=== PATIENT | male | born 1970 | race Two or more races ===

== ENCOUNTER 2022-05-26 20:44 | Emergency (ER) | payer BC, SELFPAY ==
--- NOTE | ~2022-05-26 | US_ITS ---
EXAMINATION: US venous doppler LE RT DATE: 05/26/2022 21:26 INDICATION: right calf pain r/o dvt . TECHNIQUE: Grayscale images without and with compression and Doppler images of the right lower extrem ity veins were obtained. COMPARISON: None FINDINGS: The right common femoral vein, profunda (deep) femoral vein, femoral vein, popliteal vein, peroneal v ein, posterior tibial veins, gastrocnemius vein, and greater saphenous vein are patent. IMPRESSION: 1. Patent right lower extremity veins. No evidence of deep venous thrombosis. Reviewed, dictated and finalized at location [facility]
[2022-05-26 20:53] VITALS: BP 113/89; PULSE 89; RESP 20; TEMP 36.6; O2SAT 96
--- NOTE | 2022-05-26 21:55 | ED.LOWEXIN ---
HPI - Extremity Injury (Lower) General Chief Complaint: Extremity Injury, Lower Stated Complaint: calf pain Time Seen by Provider: 05/26/22 21:51 History of Present Illness HPI Narrative: Patient is a 51-year-old male presenting with right calf pain. 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 States that he started lifting approximately a week ago. Shortly after this he developed intermittent sharp pain in his right calf that is worse with certain movements. The pain continued through today and he started to become concerned for a blood clot. He denies leg swelling or redness. He denies recent injuries. No chest pain or shortness of breath. He denies further complaints or symptoms. Related Data Allergies Allergy/AdvReac Type Severity Reaction Status Date / Time No Known Allergies Allergy Verified 05/26/22 22:12 Review of Systems Review of Systems: All systems reviewed & are unremarkable except as noted in HPI and below Exam Narrative: GENERAL: Well-appearing, well-nourished, and in no acute distress. HEAD: Normocephalic, atraumatic. EYES: PERRLA and EOMI. ENT: Nares clear, no rhinorrhea or epistaxis. Mucous membranes moist. NECK: Supple. CHEST: Clear to auscultation. No respiratory distress. HEART: Regular rate and rhythm. No murmur heard. Normal peripheral pulses. ABDOMEN: Soft, nontender, nondistended, normal active bowel sounds. EXTREMITIES: Normal range of motion. No edema. SKIN: Warm, dry, no rash. NEURO: No focal deficits. Alert and oriented x3. PSYCH: Normal mood and affect. Course Vital Signs Vital signs: Vital Signs Temperature 97.9 F 05/26/22 20:53 Pulse Rate 89 05/26/22 20:53 Respiratory Rate 05/26/22 20:53 Blood Pressure 113/89 05/26/22 20:53 Pulse Oximetry 96 05/26/22 20:53 Oxygen Delivery Room Air 05/26/22 20:53 Temperature 97.9 F 05/26/22 20:53 Pulse Rate 89 05/26/22 20:53 Respiratory Rate 20 05/26/22 20:53 Blood Pressure 113/89 05/26/22 20:53 Pulse Oximetry 96 05/26/22 20:53 Oxygen Delivery Room Air 05/26/22 20:53 MDM - Extremity Injury (Lower) MDM Narrative Medical decision making narrative: Patient is a 51-year-old male presenting with right calf pain and concern for DVT. Vitals are within normal limits. Patient is well-appearing and in no acute distress. Exam is unremarkable. Venous Doppler of his right lower extremity reveals no evidence of DVT. Suspect the patient's calf pain is related to his recent increase in physical activity. Advised Tylenol and ibuprofen for pain control. Appropriate return precautions given. Patient voiced understanding and is agreeable with plan. Discharged in stable condition. Critical Care Time Critical Care Time Critical Care Time: No Discharge Plan Discharge Clinical Impression: Right calf pain Patient Disposition: Home, Self-Care Condition: Stable Instructions: Antibiotic Form, Leg Pain (ED) Additional Instructions: Please use Tylenol and ibuprofen for pain control. Please follow-up with your PCP. If your symptoms worsen, you develop chest pain or shortness of breath, or other concerning symptoms arise, please return to the ER. Follow-up/Referrals: Heraclio,Manoj Chilel MD [Primary Care Provider] -
== END 2022-05-26 23:00 | disposition home or self-care (01) ==
LOC: ANHED 22:58
PROVIDERS: Emergency Provider Emergency Medicine; PCP Family Medicine
DX: M79.661 Pain in right lower leg (principal)
CPT/HCPCS: 93971; 99284

== ENCOUNTER 2023-07-27 10:42 | Outpatient (CLI) | payer BC, SELFPAY ==
--- NOTE | 2023-07-27 10:55 | ECG_ITS ---
Measurements Intervals [place] Rate: 71 P: 57 MT: 216 QRS: -8 QRSD: 82 T: 27 QT: 368 QTc: 402 Interpretive Statements SINUS RHYTHM WITH FIRST DEGREE AV BLOCK DELAYED PRECORDIAL R/S TRANSITION BASELINE ARTIFACT- I, II, III, AVR, AVL, AVF BORDERLINE ECG NO PREVIOUS ECG AVAILABLE FOR COMPARISON Electronically Signed On 07-27-2023 11:32:05 CDT by Anuel Davey D.O.
[2023-07-27 11:28] LABS: Anion Gap 5 mmol/L (8-16); Blood Urea Nitrogen 19 mg/dL (9-20); Calcium 9.4 mg/dL (8.4-10.2); Carbon Dioxide 29 mmol/L (22-30); Chloride 106 mmol/L (98-107); Estimated Glomerular Filt Rate > 60; Glucose 99 mg/dL (65-110); Potassium 3.9 mmol/L (3.4-5.0); Sodium 140 mmol/L (137-145)
== END 2023-07-27 10:43 | disposition home or self-care (01) ==
PROVIDERS: Anesthesiology; PCP Family Medicine; Visit Provider Urology
DX: Z79.899 Other long term (current) drug therapy (principal); I10 Essential (primary) hypertension; Z01.818 Encounter for other preprocedural examination
CPT/HCPCS: 36415; 80048; 93005

== ENCOUNTER 2023-07-28 01:50 | Day surgery (SDC) | payer BC, SELFPAY ==
[2023-07-21 09:47] VITALS: BMI 35.5
--- NOTE | 2023-07-21 09:52 | PC.NURSE ---
Report to the Outpatient Waiting Room, entrance under the green pavilion located off [facility], at time 8:45 on date 07/28/23. Planned Procedure Time: 10:45. Time changes happen often and if your time is changed the preop area will call you the afternoon before. - You and your visitor will be asked to self-screen and do not enter if you have any COVID symptoms. - A mask is optional within the hospital at this time. Patients may have clear liquids (water, carbonated beverages, clear teas, apple juice) until 3 hours prior to surgery with a maximum of 20 ounces. - No food from midnight until time of surgery Take the following medications with a SIP of water the morning of surgery: NONE DO NOT STOP ANY OF YOUR OTHER PRESCRIPTION MEDICATIONS PRIOR TO SURGERY ?EXCEPT THE FOLLOWING Medications to discontinue per physician: ASPIRIN Date to take last dose: PER DR. BELLO Please no make-up, nail wolof, hairspray, perfume, deodorant, or body powder the day of surgery. No jewelry (including any body piercings) or valuables the day of surgery, leave them at home. Please take a shower or bath the night before, or the morning of, surgery with an antibacterial soap. Wear comfortable, loose fitting clothing. - Jewelry must be removed prior to entering the operating room. Rings and piercings that are not removed may be cut off. - The hospital will not accept responsibility for valuables. - Please leave all valuables, including medications, at home the day of surgery. If you are going home after surgery, a licensed regional company hazmat tanker driver must drive you home. - NO public transportation without another adult if you receive anesthesia. - We recommend that an adult stay with you for 24 hours following discharge. - We also recommend that you do not drive, make important decision, drink alcoholic beverages, or take any drugs that were not prescribed by your health care provider for at least 24 hours after your discharge time. Follow any additional instructions given to you from your surgeon. If you or anyone in your household have experienced Covid symptoms in the past week, please notify your surgeon or the nurse liaison at the phone number below for possible testing. Telephone instructions given to PT - SENTHIL BOBO and asked if any additional questions and then verbalized understanding. Patient advised to call surgeon office or pre surgery nurse liaison [phone] if any additional questions.
--- NOTE | 2023-07-27 13:07 | WPDANESEPPF ---
Anes - Initial Pre Proc Eval Procedure: Operation Date: 07/28/23 10:45 Proposed Procedures p Circumcision - Mike Ramirez MD Date/Time: 07/27/23 13:07 Surgeon: Mike Ramirez MD Pre Op Diagnosis: Phimosis N47.1 Patient Data Age: 53 Gender: M Height: 1.96 m Weight: 136 kg Allergies Allergy/AdvReac Type Severity Reaction Status Date / Time No Known Allergies Allergy Verified 07/28/23 09:59 Home Medications Medication Instructions Recorded Confirmed Type aspirin 81 mg tablet,delayed 81 mg PO DAILY 08/28/22 07/21/23 History release (Adult Aspirin Regimen) hydrochlorothiazide 12.5 mg capsule 12.5 mg PO DAILY 08/28/22 07/21/23 History pravastatin 10 mg tablet 10 mg PO DAILY 08/28/22 07/21/23 History tamsulosin 0.4 mg capsule 0.4 mg PO HS 07/21/23 07/21/23 History Patient hx anesthesia problems: none Family hx anesthesia problems: none Results Review: All pre-operative results and documents have been reviewed as part of the pre-operative evaluation. FORMERLY [facility], [facility] Past Medical History Medical History BPH (benign prostatic hyperplasia) Hyperlipidemia Hypertension Social History Social History Smoking status: Never smoker Alcohol intake: current Drinks per week: 2 Substance use: never Substance use type: does not use Lack of Transportation: No Lack of Food: Never True Current Housing: I Have Housing Concerned About Future Housing: No Difficulty Paying for Meds: No Currently Unemployed: No Education: Master's Degree or Higher Difficulty w/ Childcare or Family Care: No Living arrangements: with family Occupation/Education: occupation Gender identity (if verbalized by the patient): Male Spiritual care concerns: No Anes - Eval Final PreProcedure Day of Procedure 07/27/23 13:07 Patient weight: obese Heart: regular rate and rhythm Lungs: clear to auscultation Airway: Mallampati scale class II Neurological: alert and oriented Last oral intake: >/= 8 hours ASA classification: III Emergent: no Anesthetic plan: proceed Anesthesia type and monitoring: general LMA and standard monitoring Results Review: All pre-operative results and documents have been reviewed as part of the pre-operative evaluation. Informed Consent: The patient's anesthetic plan and its attendant risks and benefits were discussed with the patient/family/POA. Questions were solicited and answers provided to the satisfaction of the patient/family/POA.
[2023-07-28] VITALS (7 sets, daily range): BP systolic 109–145; BP diastolic 88–95; PULSE 61–82; RESP 14–19; TEMP 36.1–36.5; O2SAT 96–100
--- NOTE | 2023-07-28 09:22 | PM.IMHP ---
H&P: HPI History of Present Illness Date/Time: 07/28/23 09:22 Chief Complaint: phimosis Narrative: 52 year old male with phimosis presents for circumcision Review of Systems Review of Systems: All systems reviewed & are unremarkable except as noted in HPI and below PMFSH Past Medical History Medical History BPH (benign prostatic hyperplasia) Hyperlipidemia Hypertension Social History Social History Smoking status: Never smoker Alcohol intake: current Drinks per week: 2 Substance use: never Substance use type: does not use Lack of Transportation: No Lack of Food: Never True Current Housing: I Have Housing Concerned About Future Housing: No Difficulty Paying for Meds: No Currently Unemployed: No Education: Master's Degree or Higher Difficulty w/ Childcare or Family Care: No Living arrangements: with family Occupation/Education: occupation Gender identity (if verbalized by the patient): Male Spiritual care concerns: No Meds Home Medications and Allergies Home Medications Medication Instructions Recorded Confirmed Type aspirin 81 mg tablet,delayed 81 mg PO DAILY 08/28/22 07/21/23 History release (Adult Aspirin Regimen) hydrochlorothiazide 12.5 mg capsule 12.5 mg PO DAILY 08/28/22 07/21/23 History pravastatin 10 mg tablet 10 mg PO DAILY 08/28/22 07/21/23 History tamsulosin 0.4 mg capsule 0.4 mg PO HS 07/21/23 07/21/23 History Allergies Allergy/AdvReac Type Severity Reaction Status Date / Time No Known Allergies Allergy Verified 07/21/23 09:46 Exam Const: General: cooperative, healthy appearing and no acute distress Chest: Chest palpation & inspection: normal inspection of the chest Resp: Effort & Inspection: normal respiratory effort Cardio: Rate: regular rate Rhythm: regular rhythm GI: Inspection: normal to inspection : Penis: Yes uncircumcised Assessment and Plan Assessment and plan (1) Phimosis: Code(s): N47.1 - Phimosis Status: Acute Assessment and Plan: Proceed with circumcision
--- NOTE | 2023-07-28 09:25 | WPDHPUPDATE1 ---
History and Physical Update Update Date/Time: 07/28/23 09:25 History and Physical has been reviewed, including an updated exam of the patient. There are NO changes in the patient's condition. Risks, benefits, and alternatives have been discussed and questions answered. Patient agrees to proceed with procedure. Proceed with circumcision
[2023-07-28] MEDS: LACTATED RINGERS 1,000 ML 30 ML IV CONT (09:58)
[2023-07-28] MEDS: ceFAZolin 3 GM/D5W 100 ML 100 ML IVPB (10:47)
[2023-07-28] MEDS: BUPivacaine HCL 0.5% 10 ML AMP 20 ML INFILTRATE (11:12)
--- NOTE | 2023-07-28 11:48 | W.PM.PROC2 ---
Procedure Note - Detailed Date of Procedure 07/28/23 Pre-op Diagnosis Phimosis N47.1 Post-op Diagnosis Same Procedure Performed Cicumcision Surgeon Mike Ramirez MD Anesthesia General Description of Procedure The patient is brought to the operative suite areas prepped and draped in a routine sterile fashion while in a supine position. The lines of circumcision are outlined using a sterile marking pen. 2 circumferential circumcising incisions were made and carried down to Colle's fascia. The penile foreskin is circumferentially excised. Hemostasis is obtained with electric cautery. The edges of the penile skin reapproximated using a combination of running and interrupted 3-0 chromic. A penile block is administered at the base of the penis with 1% lidocaine. The patient was taken to the recovery room in good condition. EBL was approximately 10cc. Drains No Packing No Pathology Yes Complications No immediate complications Condition Stable Disposition PACU
== END 2023-07-28 13:29 | disposition home or self-care (01) ==
PROVIDERS: PCP Family Medicine; Visit Provider Urology
PROC: (CPT 54161; principal; 2023-07-28 10:45)
DX: N47.1 Phimosis (principal); I10 Essential (primary) hypertension; E78.5 Hyperlipidemia, unspecified; N40.0 Benign prostatic hyperplasia without lower urinary tract symptoms; Z79.82 Long term (current) use of aspirin; E66.9 Obesity, unspecified; Z68.36 Body mass index [BMI] 36.0-36.9, adult
CPT/HCPCS: 54161; 36415; 80048; 88304; 93005; A9270; J0690; J1100; J2250; J2405; J2704; J3010; J7120

== ENCOUNTER 2025-05-05 11:21 | Emergency (ER) | payer BC, SELFPAY ==
--- NOTE | 2025-05-05 11:23 | ECG_ITS ---
Test Date: 2025-05-05 11:55:35 Measurements Intervals [place] Rate: 111 P: 47 TX: 209 QRS: -3 QRSD: 80 T: 80 QT: 311 QTc: 424 Interpretive Statements SINUS TACHYCARDIA WITH OCCASIONAL SUPRAVENTRICULAR PREMATURE COMPLEXES INFERIOR INFARCT, AGE INDETERMINATE BORDERLINE ST-T WAVE ABNORMALITY- HIGH LATERAL LEADS BASELINE ARTIFACT- I, II, V4 ABNORMAL ECG No previous ECG available for comparison Electronically Signed On 05-05-2025 12:57:00 TMD TEACHER ASSISTANT by Anuel Davey D.O.
[2025-05-05 11:33] VITALS: BP 142/94; PULSE 113; RESP 16; TEMP 37.1; O2SAT 99
--- NOTE | 2025-05-05 11:50 | ED.URI ---
HPI - URI/Sore Throat General Chief Complaint: Upper Respiratory Infection Stated Complaint: Chest Tightness Time Seen by Provider: 05/05/25 11:40 Source: patient and RN notes reviewed Mode of arrival: ambulatory Limitations: no limitations History of Present Illness HPI Narrative: 54-year-old male patient presents Express Care complaining of cough, body aches, chills, fatigue, chest tightness that started yesterday. Patient denies any cardiac history but he is followed by a exhaust worker for high blood pressure and high cholesterol. Denies any history of heart disease. Patient has any fevers, difficulty breathing, chest pain with exertion, jaw pain, left arm pain, nausea vomiting, diarrhea, abdominal pain, your symptoms. Patient has been taking help with symptoms. Denies any other significant past medical problems. Related Data Home Medications ?Medication ?Instructions ?Recorded ?Confirmed ?Last Taken ?Type aspirin 81 mg tablet,delayed 81 mg PO DAILY 08/28/22 07/21/23 Unknown History release (Adult Aspirin Regimen) tamsulosin 0.4 mg capsule 0.4 mg PO HS 07/21/23 07/21/23 Unknown History hydrochlorothiazide 25 mg tablet mg 05/05/25 Unknown History pravastatin 20 mg tablet mg 05/05/25 Unknown History Allergies Allergy/AdvReac Type Severity Reaction Status Date / Time No Known Allergies Allergy Verified 05/05/25 11:35 Review of Systems Review of Systems: CONSTITUTIONAL: Denies fever or sweats. Positive body aches, chills, fatigue EYES: Denies visual changes, redness, or discharge. ENT: Denies rhinorrhea, delete sore throat, or otalgia. Positive for congestion. CARDIOVASCULAR: Positive for chest tightness. Negative for chest pain with exertion, dizziness, lightheadedness, palpitations, or edema. RESPIRATORY: Positive for cough. Negative for wheezing or dyspnea. GASTROINTESTINAL: Denies abdominal pain, nausea, vomiting, or diarrhea. GENITOURINARY: Denies dysuria or hematuria. SKIN: Denies rash or itching. MUSCULOSKELETAL: Denies back pain, joint pain, or myalgia. NEUROLOGIC: Denies headache, numbness, or weakness. PSYCHIATRIC: Denies anxiety or depression. All other systems reviewed are negative, except as documented in HPI. [facility] Past Medical History Medical History BPH (benign prostatic hyperplasia) Hypertension Hyperlipidemia Social History Social History Smoking status: Never smoker Alcohol intake: current Drinks per week: 2 Substance use: never Substance use type: does not use Lack of Transportation: No Lack of Food: Never True Current Housing: I Have Housing Concerned About Future Housing: No Difficulty Paying for Meds: No Currently Unemployed: No Education: Master's Degree or Higher Difficulty w/ Childcare or Family Care: No Living arrangements: with family Occupation/Education: occupation Gender identity (if verbalized by the patient): Male Spiritual care concerns: No Comments At the time of my signature, I reviewed and agree with the nursing past medical, surgical, social, and family history. There is no relevant family history pertinent to the patient complaint. Exam Narrative: GENERAL: This is a well-nourished, well-developed adult, in no apparent distress. They are non ill-appearing, nontoxic appearing. HEAD: normocephalic, atraumatic. EYES: Sclera clear/white. Conjunctiva normal. Vision is grossly intact. Extraocular movements intact EARS: External ears normal, auditory canals clear and without drainage, TMs normal without perforation. Hearing grossly intact. NOSE: External nose normal with no obvious nasal discharge, nasal turbinates erythematous, no rhinorrhea. THROAT: Mucous membranes moist, posterior pharynx boggy, no erythema. PND present. Uvula midline. NECK: Neck supple, non-tender without lymphadenopathy, masses or thyromegaly. CARDIOVASCULAR: Regular rate and rhythm without murmurs, gallops, or rubs. RESPIRATORY: Expiratory wheezes the base of the lungs. Breath sounds equal bilaterally. No rales, or rhonchi. SKIN: warm, Dry, intact with no suspicious lesions or rash, good texture and turgor. NEURO: awake, alert, and oriented to person, place and time. There were no obvious focal neurologic abnormalities. EXTREMITIES: No joint tenderness, effusion, or edema noted. BACK: Nontender without deformity. Course Course Level of Care: Express Care Visit Vital Signs Vital signs: Vital Signs Temperature 98.8 F 05/05/25 11:33 Pulse Rate 113 H 05/05/25 11:33 Respiratory Rate 16 05/05/25 11:33 Blood Pressure 142/94 H 05/05/25 11:33 Pulse Oximetry 99 05/05/25 11:33 Temperature 98.8 F 05/05/25 11:33 Pulse Rate 113 H 05/05/25 11:33 Respiratory Rate 16 05/05/25 11:33 Blood Pressure 142/94 H 05/05/25 11:33 Pulse Oximetry 99 05/05/25 11:33 [facility] Narrative Medical decision making narrative: EKG sinus tach with premature supraventricular complexes, nonspecific ST segment changes, no reciprocal changes, ST-elevation. EKG is borderline. Patient's chest tightness is worse with a deep breath or when he coughs, appears to be pleuritic in nature, patient sees a exhaust worker but denies any history of coronary artery disease. [place] heart score 1. Low suspicion for ACS. Rapid flu a is positive. Patient's symptoms likely related to the flu. Will send patient home with Tamiflu. Discussed physical exam findings. Advised supportive measures and signs/symptoms to go to the ER. Pt is appropriate for outpt treatment and f/u. Differential Diagnosis Differential Diagnosis: Differential diagnostic considerations for upper respiratory infection include upper respiratory infection, croup, otitis media, sinusitis, viral infection, bronchitis, influenza, pharyngitis, strep, uvulitis, ACS, unstable angina, unstable angina, pleuritic chest pain, pleurisy,. Lab Data [facility] Lab Attestation statement: I personally reviewed the patient's lab results. ECG Data EKG #1: Attestation: I personally reviewed and interpreted this ECG as follows: ECG completion date: 05/05/25 ECG completion time: 11:55 Prior ECG tracings: not available for review (Previous EKG in chart unable to view the images) Interpretation: Borderline EKG tachycardia, sinus rhythm, PACs, non-specific ST changes, normal QRS, normal QT, NL axis and other (No reciprocal changes) Critical Care Time Critical Care Time Critical Care Time: No Discharge Plan Discharge Clinical Impression: Influenza Patient Disposition: Home Condition: Stable Instructions: Antibiotic Form, Influenza (ED) Additional Instructions: Your EKG is sinus tachycardia. You should avoid crowds until you are fever free for 24 hours without the use of fever reducing medications, or the symptoms are improved Rest. Drink plenty of fluids. Tylenol ibuprofen as needed for pain or fevers. Follow instructions on the bottle. Recommend Zyrtec for congestion. Take Tamiflu as directed. Follow up with your primary care provider 3-5 days Go to the ER for worsening symptoms, worsening chest pains, difficulty breathing, uncontrollable fevers, weakness, vomiting, or serious concerns Patient Language: Lithuanian Prescriptions: New oseltamivir [Tamiflu] 75 mg capsule 75 mg PO Q12H 5 Days Qty: 10 0RF No Action pravastatin 20 mg tablet hydrochlorothiazide 25 mg tablet aspirin [Adult Aspirin Regimen] 81 mg tablet,delayed release (DR/EC) 81 mg PO DAILY tamsulosin 0.4 mg capsule 0.4 mg PO HS Follow-up/Referrals: PHYSICIAN,WRITER PRODUCER [Primary Care Provider, Internal Medicine] Time of Disposition: 12:17
[2025-05-05 12:21] LABS: EDCOVIDSCREEN Negative (Negative); EDINFLUASCREEN Positive (Negative); EDINFLUBSCREEN Negative (Negative)
== END 2025-05-05 12:20 | disposition home or self-care (01) ==
DX: J10.1 Influenza due to other identified influenza virus with other respiratory manifestations (principal); Z20.822 Contact with and (suspected) exposure to COVID-19; I10 Essential (primary) hypertension; E78.5 Hyperlipidemia, unspecified; N40.0 Benign prostatic hyperplasia without lower urinary tract symptoms; Z79.82 Long term (current) use of aspirin
CPT/HCPCS: 87426; 87804; 93005; 99213; G0463

== ENCOUNTER 2025-05-12 08:43 | Emergency (ER) | payer BC, SELFPAY ==
--- NOTE | ~2025-05-12 | XR_ITS ---
Examination: XR chest 2V Clinical History: cough 8 days hx flu A +05/05 Comparison: None Technique: PA and Lateral Findings: Cardiomediastinal silhouette normal size and configuration. Small right lower lobe airspace disease. No acute bony abnormality. IMPRESSION: 1. Mild right basilar pneumonia. Reviewed, dictated and finalized at location R. [facility]
--- NOTE | 2025-05-12 08:45 | ED.URI ---
HPI - URI/Sore Throat General Chief Complaint: Upper Respiratory Infection Stated Complaint: Congestion, eye issue Time Seen by Provider: 05/12/25 09:21 Source: patient, RN notes reviewed and old records reviewed Mode of arrival: ambulatory Limitations: no limitations History of Present Illness HPI Narrative: 54-year-old male presents to the [facility] with continued congestion, crusting of the eyes. Continued diagnosed 1 week ago with influenza A. Onset (ago): week(s) (1) Treatments prior to arrival: other (Tamiflu) Related Data Home Medications ?Medication ?Instructions ?Recorded ?Confirmed ?Last Taken ?Type aspirin 81 mg tablet,delayed 81 mg PO DAILY 08/28/22 07/21/23 Unknown History release (Adult Aspirin Regimen) tamsulosin 0.4 mg capsule 0.4 mg PO HS 07/21/23 07/21/23 Unknown History hydrochlorothiazide 25 mg tablet mg 05/05/25 Unknown History pravastatin 20 mg tablet mg 05/05/25 Unknown History Allergies Allergy/AdvReac Type Severity Reaction Status Date / Time No Known Allergies Allergy Verified 05/05/25 11:35 Review of Systems Review of Systems: All systems reviewed & are unremarkable except as noted in HPI and below Constitutional: Constitutional: Reports no additional constitutional complaints Eyes: Eyes: Reports as per HPI ENT: Reports system reviewed and no additional complaints, except as documented Cardiovascular: Cardiovascular: Reports no additional cardiovascular complaints, Denies chest pain and Denies dyspnea Respiratory: Respiratory: Reports as per HPI, Denies chest congestion, Reports cough and Denies dyspnea Musculoskeletal: Musculoskeletal: Reports no additional musculoskeletal complaints Integumentary/Breasts: Skin/Breast: Reports system reviewed and no additional complaints, except as docu PMFSH Past Medical History Medical History BPH (benign prostatic hyperplasia) Hypertension Hyperlipidemia Social History Social History Smoking status: Never smoker Alcohol intake: current Drinks per week: 2 Substance use: never Substance use type: does not use Lack of Transportation: No Lack of Food: Never True Current Housing: I Have Housing Concerned About Future Housing: No Difficulty Paying for Meds: No Currently Unemployed: No Education: Master's Degree or Higher Difficulty w/ Childcare or Family Care: No Living arrangements: with family Occupation/Education: occupation Gender identity (if verbalized by the patient): Male Spiritual care concerns: No Comments At the time of my signature, I reviewed and agree with the nursing past medical, surgical, social, and family history. There is no relevant family history pertinent to the patient complaint. Exam Const: General: cooperative, no acute distress, well developed, alert, uncomfortable and well nourished Nutritional Appearance: well nourished Orientation/consciousness: patient oriented x3 Limitations: no limitations HENMT: Head: normal to inspection Ears: hearing grossly normal bilaterally, external ears normal, TM's normal bilaterally, EAC's normal, mastoids normal and no periauricular adenopathy Mouth: Yes Normal oral and palatal mucosa present, Yes lip normal, Yes tongue normal and Yes moist mucous membranes Throat: posterior oropharynx normal, uvula midline and no uvular edema Eyes: General: appearance normal, both eyes and all related structures Alignment and Position: alignment normal Neck: Neck: normal visual inspection, full ROM, no lymphadenopathy and no meningeal signs Chest: Chest palpation & inspection: normal inspection of the chest Resp: Effort & Inspection: normal respiratory effort and able to speak in complete sentences Auscultation: no crackles, no rales, no rhonchi, no wheezes and diminished lung sounds on the right in the lower lung issa Cardio: Rate: regular rate Skin: General skin exam: normal color and no rashes or lesions noted Neuro: General: patient oriented x3, gait normal, moves all extremities and no meningeal signs Cognition (Neuro): normal cognition Speech: normal speech Gait exam (Neuro): Normal gait present Extrem: General: normal to inspection, full ROM, capillary refill normal and normal gait Psych: Appearance: grossly normal and well kempt Mental Status: mental status grossly normal Speech and movement: Normal speech and movement present and Clear speech present Affect: normal affect Attitude: cooperative Course Course Level of Care: Express Care Visit Vital Signs Vital signs: Vital Signs Temperature 97.3 F L 05/12/25 08:53 Pulse Rate 99 05/12/25 08:53 Respiratory Rate 16 05/12/25 08:53 Blood Pressure 124/87 05/12/25 08:53 Pulse Oximetry 95 05/12/25 08:53 Temperature 97.3 F L 05/12/25 08:53 Pulse Rate 99 05/12/25 08:53 Respiratory Rate 16 05/12/25 08:53 Blood Pressure 124/87 05/12/25 08:53 Pulse Oximetry 95 05/12/25 08:53 reviewed MDM MDM Narrative Medical decision making narrative: Patient sitting in exam room. Patient is nontoxic, vitals stable. Patient presents with symptoms after being diagnosed with influenza a 1 week ago. Has not been taking anything to help his symptoms other than the Tamiflu that was prescribed. X-ray ordered due to diminished lung sounds right lower X-ray with right lower lobe pneumonia. Will see patient's is treatment with close follow-up Discharge instructions reviewed with patient, as well as provided in writing per nursing staff. The instructions also include specific and strict return/GO TO THE ER as well as f/u information. All questions have been answered, and the patient deny any further questions with discharge and discharge plan. Some parts of this dictation were generated by voice recognition software and may contain typographical and/or grammatical inaccuracies. Differential Diagnosis Differential Diagnosis: Differential diagnostic considerations for upper respiratory infection include upper respiratory infection, croup, otitis media, sinusitis, viral infection, bronchitis, influenza, pharyngitis, strep, uvulitis.? Medical Records I have reviewed the following patient records and this information was taken into consideration when formulating the assessment and plan.: previous ER visits and previous clinic visits Imaging Data Radiologist's impression: ITS Impressions Chest X-Ray 05/12/25 09:43 IMPRESSION: 1. Mild right basilar pneumonia. Examination: XR chest 2V Clinical History: cough 8 days hx flu A +05/05 Comparison: None Technique: PA and Lateral Findings: Cardiomediastinal silhouette normal size and configuration. Small right lower lobe airspace disease. No acute bony abnormality. IMPRESSION: 1. Mild right basilar pneumonia. Discharge Plan Discharge Clinical Impression: Right lower lobe pneumonia, Irritation of both eyes Patient Disposition: Home Condition: Stable Instructions: Antibiotic Form, Pneumonia (ED) Additional Instructions: Even though your taking an antibiotic for pneumonia it is extremely important to also take [id number] products such as Mucinex or Coricidin HBP Follow-up with your primary care provider in 1 week to make sure the pneumonia has cleared For worsening symptoms such as chest pain, severe shortness of breath please proceed to the nearest emergency room Patient Language: [place] Citizen Prescriptions: New erythromycin 5 mg/gram (0.5 %) ointment 0.5 inch EACH EYE TID Qty: 3.5 0RF doxycycline monohydrate 100 mg tablet 100 mg PO BID Qty: 14 0RF No Action pravastatin 20 mg tablet hydrochlorothiazide 25 mg tablet aspirin [Adult Aspirin Regimen] 81 mg tablet,delayed release (DR/EC) 81 mg PO DAILY tamsulosin 0.4 mg capsule 0.4 mg PO HS Follow-up/Referrals: PHYSICIAN,OPERA SINGER [Primary Care Provider, Internal Medicine] Stand Alone Forms: Work/School Release IP Time of Disposition: 09:51
[2025-05-12 08:53] VITALS: BP 124/87; PULSE 99; RESP 16; TEMP 36.3; O2SAT 95
== END 2025-05-12 09:59 | disposition home or self-care (01) ==
PROVIDERS: Emergency Provider Nurse Practitioner
DX: J18.9 Pneumonia, unspecified organism (principal); H57.13 Ocular pain, bilateral; E78.5 Hyperlipidemia, unspecified; I10 Essential (primary) hypertension
CPT/HCPCS: 71046; 99213; G0463